=== PATIENT | female | born 1940 | race Caucasian/White ===

== ENCOUNTER 2016-08-21 20:22 | Observation (INO) | payer MEDICARE, BC ==
[~2016-08-21] VITALS: Ht 160 cm; Wt 56.8 kg
[~2016-08-21 20:22] MED LIST: LEVO50TA4 PO; OMEP40CA2 PO
[2016-08-21 20:33] VITALS: BP 142/68; PULSE 70; RESP 16; O2SAT 99
[2016-08-21] MEDS ORDERED: SODIUM CHLOR 0.9% 1000 ML INJ 1,000 ML IV SCH ×2 (20:36→21:00)
[2016-08-21] MEDS ORDERED: OMEP40CA2 PO (20:44)
[2016-08-21] MEDS ORDERED: LEVO50TA4 PO (20:44)
[2016-08-21] MEDS ORDERED: SODIUM CHLORIDE 0.9% FLUSH 10 ML FLUSH IVF PRN (20:45)
[2016-08-21] MEDS ORDERED: PROCHLORPERAZINE INJ 10 MG/2 ML VIAL IV PUSH ONE (21:00)
--- NOTE | 2016-08-21 21:08 | RADRPT ---
EXAM DATE/TIME: 08/21/2016 21:01 [facility] COMPARISON: No previous studies available for comparison. INDICATIONS : Trauma, fall. Hematoma to posterior head and vomiting. RADIATION DOSE: 29.13 CTDIvol (mGy) MEDICAL HISTORY : Gastroesophageal reflux disease. Thyroid disease. SURGICAL HISTORY : Tubal ligation. Tonsillectomy.Hernia repair. ENCOUNTER: Initial ACUITY: 1 day PAIN SCALE: 5/10 LOCATION: Bilateral cranial TECHNIQUE: Multiple contiguous axial images were obtained of the head. Using automated exposure control and adj ustment of the mA and/or kV according to patient size, radiation dose was kept as low as reasonably a chievable to obtain optimal diagnostic quality images. DICOM format image data is available electro nically for review and comparison. FINDINGS: CEREBRUM: Mild cerebral atrophy. No evidence of midline shift, mass lesion, hemorrhage or acute infarction. N o extra-axial fluid collections are seen. POSTERIOR FOSSA: The cerebellum and brainstem are intact. The 4th ventricle is midline. The cerebellopontine angle i s unremarkable. EXTRACRANIAL: The visualized portion of the orbits is intact. SKULL: The calvaria is intact. No evidence of skull fracture. CONCLUSION: Mild cerebral atrophy. No acute infarct, acute hemorrhage, mass effect or extra axial fluid collections. Aleksey Chu MD on August 21, 2016 at 21:05 Board Certified Radiologist. This report was verified electronically.
--- NOTE | 2016-08-21 21:14 | RADRPT ---
EXAM DATE/TIME: 08/21/2016 20:52 [facility] COMPARISON: No previous studies available for comparison. INDICATIONS : Chest pain. General weakness. MEDICAL HISTORY : None. SURGICAL HISTORY : None. ENCOUNTER: Initial ACUITY: 1 day PAIN SCORE: 0/10 LOCATION: Bilateral chest FINDINGS: Bibasilar streakiness is noted consistent with probable atelectasis. The heart is normal. The pulmo nary vascular pattern is normal. CONCLUSION: 1. Bibasilar streakiness consistent with probable atelectasis. Aleksey Chu MD on August 21, 2016 at 21:07 Board Certified Radiologist. This report was verified electronically.
--- NOTE | 2016-08-21 21:23 | PD ---
HPI Chief Complaint: Fall Time Seen by Provider: 20:36 Travel History International Travel<30 days: No Contact w/Intl Traveler<30days: No Traveled to known affect area: No History of Present Illness HPI The patient is a 76 year old female who presents to the [facility] emergency department with a history of reportedly attempting to reach a high shelf prior to arrival by stepping on a chair when she lost her balance and hit the back of her head. She hit her head on the tile floor. She recalls the entire event and denies losing consciousness, however she had a severe headache. Her came into the room when he heard her moaning. The patient was noted to be in pain, however awake and alert. The patient had a large hematoma to the right occipital scalp. The patient reported having nausea and immediately vomited. The patient has had 10 episodes of vomiting in route to this facility according to ambulance services in spite of IV access being obtained and the patient being given Zofran 4 mg IV. She denies being on any blood thinners. She reports that she occasionally takes Aleve for pain. She denies having any neck pain. The patient removed his cervical collar prior to arrival that was placed by fire rescue. She denies having any paresthesias, numbness to her extremities, weakness to her extremities, or pain to her extremities. On review of systems, the patient denies any recent fevers, cough , congestion, chest pain, shortness of breath, abdominal pain, diarrhea, urinary symptoms, or other neurologic symptoms. [facility] Past Medical History Narrative Medical The patient's past medical history is significant for hypothyroid disorder status post thyroidectomy, history of acid reflux. GERD: Yes Medical other: Yes (hernia repair, varicose veins) Thyroid Disease: Yes (thyroid removed) : 3 Para: 3 Past Surgical History Narrative Surgical The patient's past surgical history is significant for a hernia repair, thyroidectomy, varicose vein surgery. Social History Alcohol Use: Yes (a drink 1-2 times per week, none today) Tobacco Use: No Substance Use: No Allergies-Medications (Allergen,Severity, Reaction): Uncoded Allergies: anesthesia (Adverse Reaction, Unknown, 08/21/16) severe vomiting opiates (Adverse Reaction, Unknown, 08/21/16) Reported Meds & Prescriptions Reported Meds & Active Scripts Active Reported Omeprazole 40 Mg Cap 40 Mg PO DAILY Levothyroxine (Levothyroxine Sodium) 50 Mcg Tab 50 Mcg PO DAILY Omeprazole 40 mg (Omeprazole) 40 Mg Cap 40 Mg PO DAILY Levothyroxine 50 mcg (Levothyroxine Sodium) 50 Mcg Tab 1 Tab PO DAILY Review of Systems Except as stated in HPI: all other systems reviewed are Neg General / Constitutional: No: Fever Eyes: No: Visual changes HENT: Positive: Headaches, No: Rhinorrhea, Congestion, Neck Stiffness, Neck Pain Cardiovascular: No: Chest Pain or Discomfort Respiratory: No: Shortness of Breath Gastrointestinal: Positive: Nausea, Vomiting, No: Abdominal Pain Genitourinary: No: Dysuria Musculoskeletal: No: Pain Skin: No Rash Neurologic: Positive: Headache, No: Weakness, Focal Abnormalities, Change in Mentation, Slurred Speech, Sensory Disturbance Psychiatric: No: Depression Endocrine: No: Polydipsia Hematologic/Lymphatic: No: Easy Bruising Physical Exam Narrative General: The patient is a well-developed well-nourished female, uncomfortable appearing on initial arrival, intermittently retching and vomiting. Head and Neck exam: Head is normocephalic, with hematoma formation along the right occipital scalp. No step-off or crepitus. Eyes: EOMI, pupils are equal round and reactive to light. The patient has nystagmus noted on lateral gaze bilaterally that does extinguish with time. Nose: Midline septum with pink mucous membranes Mouth: Dentition unremarkable. Moist mucus membranes. Posterior oropharynx is not erythematous. No tonsillar hypertrophy. Uvula midline. Airway patent. Neck: No palpable lymphadenopathy. No nuchal rigidity. No thyromegaly. No cervical spine tenderness on palpation. No step-off or crepitus. No erythema or ecchymosis. Cardiovascular: Regular rate and rhythm without murmurs, gallops, or rubs. Lungs: Clear to auscultation bilaterally. No wheezes, rhonchi, or rales. Abdomen: Soft, without tenderness to palpation in all 4 quadrants of the abdomen. No guarding, rebound, or rigidity. Normal bowel sounds are audible. No tenderness on palpation of McBurney's point. Negative Barrios's sign. Extremities: No clubbing, cyanosis, or edema. 2+ pulses in all 4 extremities. No extremity deformity or pain with active range of motion. The patient has no step-off or crepitus. No ligament laxity on palpation of her joints. Back: No spinous process tenderness to palpation. No costovertebral angle tenderness to palpation. Neurologic Exam: Cranial nerves 2-12 were intact on exam. Strength is 5/5 in all 4 extremities. No sensory deficits noted. Skin Exam: No rash noted. Intact skin that is warm and dry. Data Data Last Documented VS Vital Signs Date Time Temp Pulse Resp B/P Pulse Ox O2 Delivery O2 Flow Rate FiO2 08/21/16 20:42 Room Air 08/21/16 20:33 70 16 142/[address] Brain W/O Iv Contrast(Rout) (08/21/16 20:36) Ct Cerv Spine W/O Contrast (08/21/16 20:36) Iv Access Insert/Monitor (08/21/16 20:36) Ecg Monitoring (08/21/16 20:36) Oximetry (08/21/16 20:36) Oxygen Administration (08/21/16 20:36) Sodium Chlor 0.9% 1000 Ml Inj (Ns 1000 M (08/21/16 20:36) Sodium Chloride 0.9% Flush (Ns Flush) (08/21/16 20:45) Complete Blood Count With Diff (08/21/16 20:36) Comprehensive Metabolic Panel (08/21/16 20:36) Prothrombin Time / Inr (Pt) (08/21/16 20:36) Act Partial Throm Time (Ptt) (08/21/16 20:36) Chest, Single Ap (08/21/16 20:36) Sodium Chlor 0.9% 1000 Ml Inj (Ns 1000 M (08/21/16 21:00) Prochlorperazine Inj (Compazine Inj) (08/21/16 21:00) Admit Order (Ed Use Only) (08/21/16 22:35) Labs Laboratory Tests Test 08/21/16 21:14 White Blood Count 13.7 TH/MM3 Red Blood Count 4.30 MIL/MM3 Hemoglobin 13.0 GM/DL Hematocrit 38.9 % Mean Corpuscular Volume 90.6 FL Mean Corpuscular Hemoglobin 30.2 PG Mean Corpuscular Hemoglobin 33.4 % Concent Red Cell Distribution Width 13.4 % Platelet Count 195 TH/MM3 Mean Platelet Volume 9.5 FL Neutrophils (%) (Auto) 68.0 % Lymphocytes (%) (Auto) 25.1 % Monocytes (%) (Auto) 5.5 % Eosinophils (%) (Auto) 0.9 % Basophils (%) (Auto) 0.5 % Neutrophils # (Auto) 9.3 TH/MM3 Lymphocytes # (Auto) 3.4 TH/MM3 Monocytes # (Auto) 0.8 TH/MM3 Eosinophils # (Auto) 0.1 TH/MM3 Basophils # (Auto) 0.1 TH/MM3 CBC Comment AUTO DIFF Differential Comment AUTO DIFF CONFIRMED Platelet Estimate NORMAL Platelet Morphology Comment CLUMPED Prothrombin Time 10.7 SEC Prothromb Time International 1.0 RATIO Ratio Activated Partial 20.5 SEC Thromboplast Time Sodium Level 142 MEQ/L Potassium Level 3.6 MEQ/L Chloride Level 108 MEQ/L Carbon Dioxide Level 26.6 MEQ/L Anion Gap 7 MEQ/L Blood Urea Nitrogen 23 MG/DL Creatinine 0.86 MG/DL Estimat Glomerular Filtration 64 ML/MIN Rate Random Glucose 120 MG/DL Calcium Level 8.6 MG/DL Total Bilirubin 0.3 MG/DL Aspartate Amino Transf 31 U/L (AST/SGOT) Alanine Aminotransferase 27 U/L (ALT/SGPT) Alkaline Phosphatase 84 U/L Total Protein 7.0 GM/DL Albumin 3.8 GM/DL MDM Medical Decision Making Medical Screen Exam Complete: Yes Emergency Medical Condition: Yes Medical Record Reviewed: Yes Interpretation(s) Last Impressions Head CT 08/21/162035 Signed Impressions: Service Date/Time: Sunday, August 21, 2016 21:01 - CONCLUSION: Mild cerebral atrophy. No acute infarct, acute hemorrhage, mass effect or extra axial fluid collections. Aleksey Chu MD Chest X-Ray 08/21/162035 Signed Impressions: Service Date/Time: Sunday, August 21, 2016 20:52 - CONCLUSION: 1. Bibasilar streakiness consistent with probable atelectasis. Aleksey Chu MD Cervical Spine CT 08/21/162035 Signed Impressions: Service Date/Time: Sunday, August 21, 2016 21:01 - CONCLUSION: 1. No acute fracture or prevertebral soft-tissue swelling. 2. Moderate bilateral foraminal narrowing at C4-C5 and C5-C6 and mild bilateral foraminal narrowing at C3-C4. 3. Cervical spondylosis at C3-C4, C4-C5 and C5-C6. Aleksey Chu MD Differential Diagnosis Intracranial hemorrhage, versus concussion, versus intractable vomiting from concussion Narrative Course During the course of the patients emergency department visit, the patients history, examination, and differential diagnosis were reviewed with the patient. The patient had IV access obtained and blood work sent for analysis. The patient was placed on a quality assurance monitor with oximetry and blood pressure monitoring. The patient was initially provided normal saline at a maintenance rate, Compazine 5 mg IV for nausea which persisted when the patient was brought to CT. The patient refuses any type of pain medication at this time and she reports that she is very sensitive to any opiates The patients laboratory studies were reviewed and remarkable for a white count 13.7, hemoglobin 13, platelets 195 with an unremarkable differential, CMP is remarkable for chloride of 108, BUN 23, GFR 64, glucose 120, PT 10.7, PTT 20.5 Radiology studies were reviewed and remarkable for CT scan of the brain that shows no acute abnormality. A chest x-ray shows bibasilar atelectasis, CT scan of the C-spine shows degenerative changes, no other acute abnormality. The patients results were discussed with the patient, including the plan of care. I explained that further testing and/ or monitoring is indicated based on the patients history, examination, and/ or laboratory findings. Therefore, I recommended admission for additional evaluation. The patient expressed understanding and was agreeable with this plan. The patient was admitted to the hospital in stable condition and [facility] Physician Communication Physician Communication The patient's case was discussed with Dr. Rhodes who did agree to admit the patient for further valuation and treatment at this time. Diagnosis Primary Impression: Head injury due to trauma Qualified Code: S09.90XA - Head injury due to trauma, initial encounter Additional Impression: Intractable vomiting with nausea Qualified Code: R11.2 - Intractable vomiting with nausea, unspecified vomiting type Admitting Information Admitting Physician Requests: Observation Nevaeh Perry MD Aug 21, 2016 21:23
--- NOTE | 2016-08-21 21:24 | RADRPT ---
EXAM DATE/TIME: 08/21/2016 21:01 [facility] COMPARISON: No previous studies available for comparison. INDICATIONS : Trauma, fall. Hematoma to posterior head and vomiting. RADIATION DOSE: 10.49 CTDIvol (mGy) MEDICAL HISTORY : Gastroesophageal reflux disease. Thyroid disease. SURGICAL HISTORY : Tonsillectomy. Tubal ligation. Hernia repair. ENCOUNTER: Initial ACUITY: 1 day PAIN SCALE: 2/10 LOCATION: Neck TECHNIQUE: Volumetric scanning of the cervical spine was performed. Multiplanar reconstructions in the sagittal, coronal and oblique axial planes were performed. Using automated exposure control and adjustment o f the mA and/or kV according to patient size, radiation dose was kept as low as reasonably achievable to obtain optimal diagnostic quality images. DICOM format image data is available electronically f or review and comparison. FINDINGS: There is no acute fracture or prevertebral soft-tissue swelling. Cervical spondylosis is noted at C3 -C4, C4-C5 and C5-C6. Moderate bilateral foraminal narrowing is noted at C4-C5 and C5-C6. Mild bila teral foraminal narrowing is noted at C3-C4. The bony relationship and alignment between C1 and C2 i s well maintained. There is no spinal stenosis. CONCLUSION: 1. No acute fracture or prevertebral soft-tissue swelling. 2. Moderate bilateral foraminal narrowing at C4-C5 and C5-C6 and mild bilateral foraminal narrowing at C3-C4. 3. Cervical spondylosis at C3-C4, C4-C5 and C5-C6. Aleksey Chu MD on August 21, 2016 at 21:15 Board Certified Radiologist. This report was verified electronically.
[2016-08-21 21:36] LABS: AUTOMATED NEUTROPHIL # 9.3 TH/MM3 (1.8-7.7); BASOPHIL # 0.1 TH/MM3 (0-0.2); BASOPHIL % 0.5 % (0.0-2.0); EOSINOPHIL # 0.1 TH/MM3 (0-0.4); EOSINOPHIL % 0.9 % (0.0-4.0); HEMATOCRIT 38.9 % (35.0-46.0); LYMPH % 25.1 % (9.0-44.0); LYMPHOCYTE # 3.4 TH/MM3 (1.0-4.8); MEAN CELL VOLUME 90.6 FL (80.0-100.0); MEAN CORPUSCULAR HEMOGLOBIN 30.2 PG (27.0-34.0); MEAN CORPUSCULAR HGB CONC 33.4 % (32.0-36.0); MONO % 5.5 % (0.0-8.0); PLATELET COUNT 195 TH/MM3 (150-450); RED CELL DISTRIBUTION WIDTH 13.4 % (11.6-17.2); WHITE BLOOD COUNT 13.7 TH/MM3 (4.0-11.0)
[2016-08-21 21:47] LABS: HEMO FLAGS AUTO DIFF
[2016-08-21 21:52] LABS: ANION GAP 7 MEQ/L (5-15); AST (GOT) 31 U/L (15-37); BICARBONATE 26.6 MEQ/L (21.0-32.0); BLOOD UREA NITROGEN 23 MG/DL (7-18); CHLORIDE 108 MEQ/L (98-107); GLOMERULAR FILTRATION RATE 64 ML/MIN (>89); POTASSIUM 3.6 MEQ/L (3.5-5.1); SODIUM (NA) 142 MEQ/L (136-145)
[2016-08-21 21:53] LABS: ALT (GPT) 27 U/L (10-53)
[2016-08-21 21:55] LABS: APTT (PATIENT) 20.5 SEC (24.3-30.1)
[2016-08-21 21:56] LABS: ALKALINE PHOSPHATASE 84 U/L (45-117); TOTAL BILIRUBIN ADULT 0.3 MG/DL (0.2-1.0)
[2016-08-21 22:02] LABS: PROTHROMBIN TIME - PATIENT 10.7 SEC (9.8-11.6)
[2016-08-21 22:09] LABS: PLATELET ESTIMATE SMEAR NORMAL (NORMAL); PLATELET MORPHOLOGY CLUMPED (NORMAL); SCAN/DIFF AUTO DIFF CONFIRMED
[2016-08-21] MEDS ORDERED: PROMETHAZINE HCL 25 MG SUPP RECTAL PRN (22:45)
[2016-08-21] MEDS ORDERED: LACTULOSE SYRUP 20 GM/30 ML CUP PO PRN (22:45)
[2016-08-21] MEDS ORDERED: SODIUM CHLORIDE 0.9% FLUSH 10 ML FLUSH IV FLUSH PRN (22:45)
[2016-08-21] MEDS ORDERED: ACETAMINOPHEN 325 MG TAB PO PRN (22:45)
[2016-08-21] MEDS ORDERED: MAGNESIUM HYDROXIDE SUSP 30 ML CUP PO PRN (22:45)
[2016-08-21] MEDS ORDERED: BISACODYL 10 MG SUPP RECTAL PRN (22:45)
[2016-08-21] MEDS ORDERED: ONDANSETRON HCL 4 MG/2 ML VIAL IVP PRN (22:45)
[2016-08-21] MEDS ORDERED: SENNOSIDES 8.6 MG TAB PO PRN (22:45)
--- NOTE | 2016-08-21 22:46 | HHI.HP ---
HPI Service [facility] Primary Care Physician Unknown Admission Diagnosis Head injury, intractable vomiting Diagnoses: (1) Concussion Diagnosis: Principal (2) Intractable nausea and vomiting Diagnosis: Principal (3) Dehydration Diagnosis: Principal (4) Leukocytosis Diagnosis: Principal Travel History International Travel<30 Days: No Contact w/Intl Traveler <30 Da: No Traveled to Known Affected Are: No History of Present Illness This is a 76-year-old female with a PMH of Hypothyroidism and GERD who is brought to the ER by EMS secondary to fall with head injury. Per , patient was standing on a stepstool attempting to reach something on top shelf when she had sudden fall, hit back of head on tile floor. No reported LOC. Pt w/ persistent nausea/vomiting since incident, s/p Zofran by EMS w/ minimal improvement. On arrival, BP 142/60, HR 70, O2 sat 99% on RA. Pt noted to have large right occipital hematoma, no other injuries noted. WBC 13.7. BUN 23, GFR 64. INR 1.0. CT Head with no acute infarct, hemorrhage or mass effect. CT C-spine with no acute fracture. CXR by basilar streakiness consistent with possible atelectasis. S/p Compazine and Zofran w/ no significant improvement. reports pt is very sensitive to narcotic medications but has had relief from Phenergan in the past. On exam, pt is lethargic from medications, but rouses easily, answers questions. Review of Systems Except as stated in HPI: all other systems reviewed are Neg ROS: 14 point review of systems otherwise negative. Past Family Social History Past Medical History PMH: Hypothyroidism and GERD Past Surgical History PAST SURGICAL HISTORY: Hernia Repair, Thyroidectomy, Varicose Vein Surgery Allergies: Uncoded Allergies: anesthesia (Adverse Reaction, Unknown, 08/21/16) severe vomiting opiates (Adverse Reaction, Unknown, 08/21/16) Family History PAST FAMILY HISTORY: Reviewed. No h/o DM or CAD Social History PAST SOCIAL HISTORY: Occasional alcohol. Negative for tobacco or drugs. Physical Exam Vital Signs Vital Signs Date Time Temp Pulse Resp B/P Pulse Ox O2 Delivery O2 Flow Rate FiO2 08/21/16 20:42 Room Air 08/21/16 20:33 70 16 142/68 99 Physical Exam PE: GENERAL: Elderly white female in no acute distress, however appears to feel unwell. at bedside. HEENT: PERRLA, EOMI. No scleral icterus or conjunctival pallor. No lid lag or facial droop. Right occipital hematoma no open laceration. CARDIOVASCULAR: Regular rate and rhythm. No obvious murmurs to auscultation. No chest tenderness to palpation. RESPIRATORY: No obvious rhonchi or wheezing. Clear to auscultation. Breath sounds equal bilaterally. GASTROINTESTINAL: Abdomen soft, non-tender, nondistended. BS normal. MUSCULOSKELETAL: Extremities without clubbing, cyanosis, or edema. No obvious deformities. NEUROLOGICAL: Lethargic from medications but rouses easily, answers questions.. No focal neurologic deficits. Moving both upper and lower extremities spontaneously. Laboratory Laboratory Tests Test 08/21/16 21:14 White Blood Count 13.7 Red Blood Count 4.30 Hemoglobin 13.0 Hematocrit 38.9 Mean Corpuscular Volume 90.6 Mean Corpuscular Hemoglobin 30.2 Mean Corpuscular Hemoglobin 33.4 Concent Red Cell Distribution Width 13.4 Platelet Count 195 Mean Platelet Volume 9.5 Neutrophils (%) (Auto) 68.0 Lymphocytes (%) (Auto) 25.1 Monocytes (%) (Auto) 5.5 Eosinophils (%) (Auto) 0.9 Basophils (%) (Auto) 0.5 Neutrophils # (Auto) 9.3 Lymphocytes # (Auto) 3.4 Monocytes # (Auto) 0.8 Eosinophils # (Auto) 0.1 Basophils # (Auto) 0.1 CBC Comment AUTO DIFF Differential Comment AUTO DIFF CONFIRMED Platelet Estimate NORMAL Platelet Morphology Comment CLUMPED Prothrombin Time 10.7 Prothromb Time International 1.0 Ratio Activated Partial 20.5 Thromboplast Time Sodium Level 142 Potassium Level 3.6 Chloride Level 108 Carbon Dioxide Level 26.6 Anion Gap 7 Blood Urea Nitrogen 23 Creatinine 0.86 Estimat Glomerular Filtration 64 Rate Random Glucose 120 Calcium Level 8.6 Total Bilirubin 0.3 Aspartate Amino Transf 31 (AST/SGOT) Alanine Aminotransferase 27 (ALT/SGPT) Alkaline Phosphatase 84 Total Protein 7.0 Albumin 3.8 Result Diagram: 08/21/16211308/21/162113 Assessment and Plan Problem List: (1) Concussion ICD Code: S06.0X9A Status: Acute (2) Intractable nausea and vomiting ICD Code: R11.2 Status: Acute (3) Dehydration ICD Code: E86.0 Status: Acute (4) Leukocytosis ICD Code: D72.829 Status: Acute Assessment and Plan A/P: 1. Concussion: s/p fall from stepstool, +head trauma on tile floor, +right occipital hematoma. CT Head w/ no acute findings, images reviewed by me. Pt w / persistent nausea/vomiting, will admit for Observation, Neuro Checks q4h, repeat CT Head in am. IVF for hydration. 2. Intractable N/V: s/p Zofran/Compazine w/ minimal improvement. reports relief at home w/ Phenergan, IM formulation out of stock, will use suppositories. Protonix IV. 3. Dehydration: BUN 23, GFR 64, no previous labs for comparison. IVF, repeat labs in am. 4. Leukocytosis: WBC 13, CXR w/ likely atelectasis, images reviewed by me, no obvious infection. Check repeat labs in am. 5. DVT Prophylaxis: SCD/Teds. 6. Social work for d/c planning as needed. 7. Case discussed w/ ER physician at length. Rebecca Rhodes MD Aug 21, 2016 22:46
[2016-08-21] MEDS: SODIUM CHLOR 0.9% 1000 ML INJ 1,000 ML IV SCH (23:13)
[2016-08-21] MEDS: PANTOPRAZOLE SODIUM 40 MG VIAL IV PUSH SCH (23:13)
[2016-08-21 23:31] VITALS: BP 138/62; PULSE 62; RESP 16; O2SAT 98
[2016-08-21 23:46] VITALS: BP 123/60; PULSE 82; RESP 18; TEMP 98; O2SAT 97
[2016-08-22 03:26] VITALS: BP 119/58; PULSE 67; RESP 18; TEMP 98.1; O2SAT 96
[2016-08-22 05:17] LABS: AUTOMATED NEUTROPHIL # 6.2 TH/MM3 (1.8-7.7); BASOPHIL % 0.3 % (0.0-2.0); EOSINOPHIL % 0.1 % (0.0-4.0); HEMO FLAGS DIFF FINAL; LYMPH % 19.6 % (9.0-44.0); LYMPHOCYTE # 1.6 TH/MM3 (1.0-4.8); MEAN CELL VOLUME 90.5 FL (80.0-100.0); MEAN CORPUSCULAR HEMOGLOBIN 30.3 PG (27.0-34.0); MEAN CORPUSCULAR HGB CONC 33.5 % (32.0-36.0); MONO % 5.7 % (0.0-8.0); NEUT % 74.3 % (16.0-70.0); PLATELET COUNT 229 TH/MM3 (150-450); RED BLOOD COUNT 3.87 MIL/MM3 (4.00-5.30); RED CELL DISTRIBUTION WIDTH 13.8 % (11.6-17.2); WHITE BLOOD COUNT 8.3 TH/MM3 (4.0-11.0)
[2016-08-22 06:12] LABS: ALKALINE PHOSPHATASE 66 U/L (45-117); ALT (GPT) 22 U/L (10-53); ANION GAP 6 MEQ/L (5-15); AST (GOT) 23 U/L (15-37); BICARBONATE 29.6 MEQ/L (21.0-32.0); BLOOD UREA NITROGEN 15 MG/DL (7-18); CHLORIDE 109 MEQ/L (98-107); GLOMERULAR FILTRATION RATE 71 ML/MIN (>89); POTASSIUM 4.1 MEQ/L (3.5-5.1); SODIUM (NA) 145 MEQ/L (136-145); TOTAL BILIRUBIN ADULT 0.5 MG/DL (0.2-1.0)
[2016-08-22] MEDS ORDERED: LEVOTHYROXINE SODIUM 50 MCG TAB PO SCH (07:00)
[2016-08-22 07:32] VITALS: BP_SYST 109; BP_SYST 122; BP_SYST 129; BP_DIAS 54; BP_DIAS 59; BP_DIAS 60; PULSE 61; RESP 16; TEMP 99.8; O2SAT 97
--- NOTE | 2016-08-22 08:14 | RADRPT ---
EXAM DATE/TIME: 08/22/2016 07:52 [facility] COMPARISON: CT BRAIN W/O CONTRAST, August 21, 2016, 21:01. INDICATIONS : Trauma; fall. RADIATION DOSE: 29.10 CTDIvol (mGy) MEDICAL HISTORY : Gastroesophageal reflux disease. Thyroid disease, SURGICAL HISTORY : Tubal ligation. Tonsillectomy.Hernia repair. ENCOUNTER: Subsequent ACUITY: 1 day PAIN SCALE: 5/10 LOCATION: cranial TECHNIQUE: Multiple contiguous axial images were obtained of the head. Using automated exposure control and adj ustment of the mA and/or kV according to patient size, radiation dose was kept as low as reasonably a chievable to obtain optimal diagnostic quality images. DICOM format image data is available electro nically for review and comparison. FINDINGS: CEREBRUM: There is mild cerebral atrophy. Ventricles are normal in size. No evidence of midline shift, mass le racheal, hemorrhage or acute infarction. No extra-axial fluid collections are seen. POSTERIOR FOSSA: The cerebellum and brainstem demonstrate no acute finding. The 4th ventricle is midline. The cerebe llopontine angle is unremarkable. EXTRACRANIAL: There is stable mild mucoperiosteal thickening in the right sphenoid sinus. Remaining visualized sinu ses are clear. There is right posterior scalp soft tissue swelling. SKULL: The calvaria is intact. No evidence of skull fracture. CONCLUSION: Stable noncontrast head CT. There is right posterior scalp soft tissue swelling. No fracture or acute intracranial abnormality is identified. Jeremy Palmer MD on August 22, 2016 at 8:05 Board Certified Radiologist. This report was verified electronically.
[2016-08-22] MEDS: SODIUM CHLOR 0.9% 1000 ML INJ 1,000 ML IV SCH (08:44)
[2016-08-22] MEDS ORDERED: SODIUM CHLORIDE 0.9% FLUSH 10 ML FLUSH IV FLUSH SCH (09:00)
[2016-08-22] MEDS ORDERED: DOCUSATE SODIUM 50 MG/SENNA 8.6 MG TAB PO SCH (09:00)
--- NOTE | 2016-08-22 09:44 | HHI.PR ---
Subjective Remarks Follow-up for fall with head injury. The patient states that she slipped off a step stool yesterday and struck the back for head. She reports today the swelling in the back of her head has significantly improved. She denies any headache or paresthesias. She had breakfast today with no nausea or vomiting. She feels much better. She denies any blurred vision. She hasn't tried getting out of bed since admission yet. She is hoping to go home today. Objective Vitals Vital Signs Date Time Temp Pulse Resp B/P Pulse Ox O2 Delivery O2 Flow Rate FiO2 08/22/16 07:32 99.8 61 16 109/54 97 129/59 122/60 08/22/16 03:26 98.1 67 18 119/58 96 08/21/16 23:46 98.0 82 18 123/60 97 08/21/16 23:31 62 16 138/62 98 Room Air 08/21/16 20:42 Room Air 08/21/16 20:33 70 16 142/68 99 Result Diagram: 08/22/16 0450 08/22/16 0438 Imaging Last Impressions Head CT 08/22/16 0600 Signed Impressions: Service Date/Time: Monday, August 22, 2016 07:52 - CONCLUSION: Stable noncontrast head CT. There is right posterior scalp soft tissue swelling. No fracture or acute intracranial abnormality is identified. Jeremy Palmer MD Chest X-Ray 08/21/[id number] Signed Impressions: Service Date/Time: Sunday, August 21, 2016 20:52 - CONCLUSION: 1. Bibasilar streakiness consistent with probable atelectasis. Aleksey Chu MD Cervical Spine CT 08/21/[id number] Signed Impressions: Service Date/Time: Sunday, August 21, 2016 21:01 - CONCLUSION: 1. No acute fracture or prevertebral soft-tissue swelling. 2. Moderate bilateral foraminal narrowing at C4-C5 and C5-C6 and mild bilateral foraminal narrowing at C3-C4. 3. Cervical spondylosis at C3-C4, C4-C5 and C5-C6. Aleksey Chu MD Objective Remarks GENERAL: Well-developed well-nourished. In no acute distress. SKIN: Warm and dry. No lesions noted. HEENT: Normocephalic. Pupils equal and round. Horizontal nystagmus. Mucous membranes pink and moist. CARDIOVASCULAR: Regular rate and rhythm. No murmur appreciated. RESPIRATORY: No accessory muscle use. Clear to auscultation. Breath sounds equal bilaterally. GASTROINTESTINAL: Abdomen soft, non-tender, nondistended. Bowel sounds x4. MUSCULOSKELETAL: No obvious deformities. No clubbing or cyanosis. No edema. NEUROLOGICAL: Awake and alert. No focal neurological deficits. Moves upper and lower extremities spontaneously. Normal speech. Strength 5/5. PSYCHIATRIC: Appropriate mood and affect; insight and judgment normal. A/P Problem List: (1) Concussion ICD Code: S06.0X9A Status: Acute (2) Intractable nausea and vomiting ICD Code: R11.2 Status: Resolved (3) Leukocytosis ICD Code: D72.829 Status: Resolved Assessment and Plan 76-year-old female with a PMH of Hypothyroidism and GERD who presented after mechanical fall with head injury Concussion: s/p fall from [facility], +head trauma on tile floor, +right occipital hematoma. Initial and repeat CT Head w/ no acute findings, stable. C -spine CT with no acute fracture or paravertebral soft tissue swelling. Horizontal nystagmus. Presented with nausea and vomiting, which has resolved. Non-orthostatic. Out of bed with PT or nursing. Neuro Checks. Intractable N/V: Secondary to concussion as above. Protonix IV. IVF. Diet as tolerated. Improved. Leukocytosis: WBC 13, suspect stress reaction from fall. WBC now within normal limits. CXR w/ likely bibasilar atelectasis, no obvious infection. Monitor. DVT Prophylaxis: SCD/Teds. Discharge Planning Likely discharge if patient's symptoms continue to improve and she is able to ambulate. Antione Anand Aug 22, 2016 09:44
[2016-08-22] MEDS: PANTOPRAZOLE SODIUM 40 MG VIAL IV PUSH SCH (10:45)
== END 2016-08-22 11:44 | disposition home or self-care (01) ==
LOC: NEPC 20:22 → NEDA 22:36 → NEPGCP 23:38
PROVIDERS: ADMIT Hospitalist; ATTEND Hospitalist
DX: S06.0X9A Concussion with loss of consciousness of unspecified duration, initial encounter (principal); R11.2 Nausea with vomiting, unspecified; E86.0 Dehydration; D72.829 Elevated white blood cell count, unspecified; R53.81 Other malaise; S00.03XA Contusion of scalp, initial encounter; G31.9 Degenerative disease of nervous system, unspecified; R07.9 Chest pain, unspecified; R53.1 Weakness; R91.8 Other nonspecific abnormal finding of lung field; E03.9 Hypothyroidism, unspecified; K21.9 Gastro-esophageal reflux disease without esophagitis; M47.812 Spondylosis without myelopathy or radiculopathy, cervical region; H55.09 Other forms of nystagmus; Z79.899 Other long term (current) drug therapy; W17.89XA Other fall from one level to another, initial encounter
CPT/HCPCS: 70450; 71010; 72125; 80053; 85025; 85610; 85730; 96361; 96374; 97161; 99285; C9113; G0378; G8987; G8988; J7030